=== PATIENT | female | born 1970 | race Caucasian/White ===

== ENCOUNTER 2020-05-31 15:08 | Emergency (ER) | payer BC, SELFPAY ==
[2020-05-31 15:09] VITALS: BP 145/78; PULSE 93; RESP 16; TEMP 36.6; O2SAT 97
--- NOTE | 2020-05-31 16:00 | ED.HA ---
HPI - Headache General Chief Complaint: Headache Stated Complaint: migraine Time Seen by Provider: 05/31/20 15:16 Source: patient Mode of arrival: ambulatory Limitations: no limitations History of Present Illness HPI Narrative: A 50-year-old female comes into the emergency department today with complaints of a migraine headache. Patient does endorse a history of migraine headaches and states that this 1 is a particularly bad one. She notes she has not been able to get the pain to go away and it seems to continue to escalate. She took her normal dose of rizatriptan with some, minimal relief. Patient states that she is very photophobic as well as phonophobic. She does endorse some mild nausea. Patient states that this particular headache started this morning. She states that she was recently taking amitriptyline as in the preventative medication however was recently tapered off of this due to memory issues. Related Data Allergies Allergy/AdvReac Type Severity Reaction Status Date / Time amoxicillin Allergy Mild Hives Verified 05/31/20 15:27 Penicillins Allergy Mild Rash Verified 05/31/20 15:27 clarithromycin Allergy Unknown Rash Verified 05/31/20 15:27 erythromycin base Allergy Unknown Hives Verified 05/31/20 15:27 sumatriptan Allergy Unknown Rash Verified 05/31/20 15:27 yellow dye Allergy Unknown Rash Verified 05/31/20 15:27 Review of Systems Review of Systems: Narrative: CONSTITUTIONAL: Denies fever, chills, or sweats. EYES: Denies visual changes, redness, or discharge. ENT: Denies rhinorrhea, congestion, sore throat, or otalgia. CARDIOVASCULAR: Denies chest pain, palpitations, or edema. RESPIRATORY: Denies cough or dyspnea. GASTROINTESTINAL: Denies abdominal pain, nausea, vomiting, or diarrhea. GENITOURINARY: Denies dysuria or hematuria. SKIN: Denies rash or itching. MUSCULOSKELETAL: Denies back pain, joint pain, or myalgia. NEUROLOGIC: Denies numbness, dizziness, or weakness. Endorses headache PSYCHIATRIC: Denies anxiety or depression. [facility] Past Medical History Medical History Hypothyroid Migraine without aura, not intractable, without status migrainosus Ovarian cyst (~1995) Surgical History Surgical History History of left knee surgery (~1985) History of nasal surgery 1979, 1980, 1994 History of shoulder surgery (~2009) right History of tonsillectomy (~1980) Family History Family History Father Family history of lung cancer Grandparent Family history of lung cancer Mother Family history of lupus erythematosus Sibling Asthma Father Family history of lung cancer, Onset Age: 56 Patient's father is Social History Social History Smoking status: Never smoker Alcohol intake: current Additional living arrangements comments: Exam Narrative: Exam Narrative: GENERAL: Well-appearing, well-nourished, and in no acute distress. Sitting quietly in a dark room, shielding her eyes from light HEAD: Normocephalic, atraumatic. EYES: PERRLA and EOMI. ENT: Nares clear, no rhinorrhea or epistaxis. Mucous membranes moist. NECK: Supple. No adenopathy or masses. No carotid bruits or JVD CHEST: Clear to auscultation. No respiratory distress. No wheezes rales or rhonchi HEART: Regular rate and rhythm. No murmur heard. Normal peripheral pulses. ABDOMEN: Soft, nontender, nondistended, normal active bowel sounds. EXTREMITIES: Normal range of motion. No edema. SKIN: Warm, dry, no rash. NEURO: No focal deficits. Alert and oriented x3. PSYCH: Normal mood and affect. Course Reevaluation(s) Reevaluation #1: Reevaluated patient after she received her medications. She states that her headache has markedly improved. She now rates it at a 3 out of 10. Patient will be discharged at
[2020-05-31] MEDS: KETOROLAC 30 MG/ML VIAL (*BKC) IV PUSH (16:19)
[2020-05-31] MEDS: PROCHLORPERAZINE EDISYLATE 10 MG/2 ML VIAL 5 MG IV PUSH (16:19)
[2020-05-31] MEDS: diphenhydrAMINE HCl INJ 50 MG/ML VIAL IV PUSH (16:19)
[2020-05-31 17:17] VITALS: BP 130/76; PULSE 90; RESP 18; O2SAT 98
== END 2020-05-31 17:18 | disposition home or self-care (01) ==
PROVIDERS: Emergency Provider Emergency Medicine; PCP Family Medicine
DX: G43.909 Migraine, unspecified, not intractable, without status migrainosus (principal); E03.9 Hypothyroidism, unspecified
CPT/HCPCS: 96374; 96375; 99284; J0780; J1200; J1885

== ENCOUNTER 2020-06-30 15:11 | Outpatient (CLI) | payer BC, SELFPAY ==
--- NOTE | ~2020-06-30 | US_ITS ---
US pelvic complete w TV DATE: 06/30/2020 16:00 INDICATION: Uterine hypertrophy TECHNIQUE: Real-time imaging via transabdominal and transvaginal approaches COMPARISON: 01/20/2018 CT abdomen pelvis FINDINGS: The uterus measures 8.3 cm height, 5.4 cm transverse dimension. There are multiple heteroge neous echogenic areas, the largest measuring 3.9 x 3.3 x 2.7 cm, most consistent with uterine fibroid s. The uterus central and medial complex measures approximately 8.3 mm AP dimension. Right ovary measures 2.0 x 1.3 x 1.3 cm. The left ovary measures 2.0 x 1.9 x 1.4 cm. There is vascula r flow to both ovaries. No pelvic mass or abnormal pelvic fluid collection is noted otherwise. IMPRESSION: Uterine fibroids Reviewed, dictated and finalized at [facility]. Reviewed, dictated and finalized at location [facility]. IMPRESSION: Uterine fibroids
== END 2020-06-30 15:12 | disposition home or self-care (01) ==
PROVIDERS: PCP Family Medicine; Visit Provider Obstetrics & Gynecology
DX: N85.2 Hypertrophy of uterus (principal); D25.9 Leiomyoma of uterus, unspecified
CPT/HCPCS: 76830; 76856

== ENCOUNTER 2020-08-20 15:49 | Outpatient (CLI) | payer BC, SELFPAY ==
--- NOTE | ~2020-08-20 | MM_ITS ---
EXAMINATION: MM screening sridhar BI w heriberto HISTORY: Screening TECHNIQUE: Craniocaudal and mediolateral oblique 3-D tomosynthesis images were obtained and synthetic 2-D images were generated. CAD analysis was submitted and interpreted. COMPARISON: 06/14/2017 BREAST PARENCHYMAL COMPOSITION: There are scattered areas of fibroglandular density. FINDINGS: There is no evidence of suspicious mass, calcification, or architectural distortion to sugg est malignancy in either breast. There has been no suspicious interval change. IMPRESSION: 1. No mammographic evidence of malignancy. 2. Recommend routine screening mammography in one year. BI-RADS Category 1: Negative Reviewed, dictated and finalized at location [facility].
== END 2020-08-20 15:50 | disposition home or self-care (01) ==
LOC: ANHIMG 15:53
PROVIDERS: PCP Family Medicine; Visit Provider Obstetrics & Gynecology
DX: Z12.31 Encounter for screening mammogram for malignant neoplasm of breast (principal)
CPT/HCPCS: 77063; 77067

== ENCOUNTER 2020-11-11 07:18 | Outpatient (CLI) | payer BC, SELFPAY ==
[2020-11-14 05:50] LABS: FSH 65.8 mIU/mL (***)
== END 2020-11-11 07:19 | disposition home or self-care (01) ==
PROVIDERS: PCP Family Medicine; Visit Provider Obstetrics & Gynecology
DX: N95.1 Menopausal and female climacteric states (principal)
CPT/HCPCS: 36415; 83001

== ENCOUNTER 2021-04-02 07:56 | Emergency (ER) | payer OTHER, BC, SELFPAY ==
--- NOTE | ~2021-04-02 | XR_ITS ---
EXAMINATION: XR ankle RT min 3V EXAM DATE: 04/02/2021 08:41 INDICATION: Lateral malleolus pain, fall, initial encounter. TECHNIQUE: Right ankle frontal, lateral and oblique projections obtained and reviewed. There is no p rior study for comparison. FINDINGS: The right ankle mortise appears intact. There are no acute fractures or dislocations iden tified. There is no subcutaneous gas. There is soft tissue swelling over the ankle laterally. Ther e are no radiopaque foreign bodies. There is old medial malleolar avulsion injury. Tibial bone islan d. IMPRESSION: 1. Right ankle exam without acute osseous findings. 2. Soft tissue swelling. Reviewed, dictated and finalized at location B. ECT DIRECTOR
[2021-04-02 08:20] VITALS: BP 140/85; PULSE 104; RESP 18; TEMP 36.8; O2SAT 98
[2021-04-02] MEDS: HYDROcodone/acetaminophen (*CRX) 5-325 MG TABLET 1 TAB PO (08:29)
--- NOTE | 2021-04-02 08:54 | ED.LOWEXIN ---
HPI - Extremity Injury (Lower) General Chief Complaint: Extremity Injury, Lower Stated Complaint: right ankle injury Time Seen by Provider: 04/02/21 08:03 History of Present Illness HPI Narrative: Patient is a 51-year-old female who presents ER with right ankle pain. She was stepping up on a curb at [employer] when she did not quite make it and she twisted her ankle. She felt a pop. She has pain with attempting to bear weight. Pain is under the lateral malleolus where there is also swelling. She did not strike her head or lose consciousness. No numbness or tingling in the foot. Related Data Home Medications Medication Instructions Recorded Confirmed erenumab-aooe 140 mg/mL mg SUBCUT 06/17/20 12/17/20 subcutaneous auto-injector zolpidem 5 mg tablet 5 mg PO QHS tablet 06/17/20 12/17/20 Allergies Allergy/AdvReac Type Severity Reaction Status Date / Time amoxicillin Allergy Mild Hives Verified 04/02/21 08:25 Penicillins Allergy Mild Rash Verified 04/02/21 08:25 clarithromycin Allergy Unknown Rash Verified 04/02/21 08:25 erythromycin base Allergy Unknown Hives Verified 04/02/21 08:25 sumatriptan Allergy Unknown Rash Verified 04/02/21 08:25 yellow dye Allergy Unknown Rash Verified 04/02/21 08:25 Review of Systems Review of Systems: All systems reviewed & are unremarkable except as noted in HPI and below ENT: Denies dizziness Musculoskeletal: Musculoskeletal: Denies myalgias, Reports arthralgias and Reports joint swelling Neurologic: Denies syncope, Denies focal weakness and Denies numbness PMFSH Past Medical History Medical History Hypothyroid Migraine without aura, not intractable, without status migrainosus Ovarian cyst (~1995) Sleep apnea Surgical History Surgical History History of left knee surgery (~1985) History of nasal surgery 1979, 1980, 1994 History of shoulder surgery (~2009) right History of tonsillectomy (~1980) Family History Family History Father Family history of lung cancer Grandparent Family history of lung cancer Mother Family history of lupus erythematosus Sibling Asthma Father Family history of lung cancer, Onset Age: 56 Patient's father is Social History Social History Smoking status: Never smoker Alcohol intake: current Additional living arrangements comments: Exam Narrative: GENERAL: Well-appearing, well-nourished, and in no acute distress. HEAD: Normocephalic, atraumatic. HEART: Regular rate and rhythm. Normal peripheral pulses. EXTREMITIES: Focused exam of right lower extremity reveals no tenderness at the knee with normal range of motion, there is range of motion preserved at the ankle with tenderness over the tip of the base of the lateral malleolus with observable swelling. Neurovascular intact distal to the injury. SKIN: Warm, dry, no rash. NEURO: No focal deficits. Alert and oriented x3. PSYCH: Normal mood and affect. Course Course Emergency Course: Patient form results. Will give crutch training. Discharge home with NSAIDs and care instructions. Vital Signs Vital signs: Vital Signs Temperature 98.2 F 04/02/21 08:20 Pulse Rate 104 H 04/02/21 08:20 Respiratory Rate 18 04/02/21 08:20 Blood Pressure 140/85 04/02/21 08:20 Pulse Oximetry 98 04/02/21 08:20 Temperature 98.2 F 04/02/21 08:20 Pulse Rate 104 H 04/02/21 08:20 Respiratory Rate 18 04/02/21 08:20 Blood Pressure 140/85 04/02/21 08:20 Pulse Oximetry 98 04/02/21 08:20 MDM - Extremity Injury (Lower) Imaging Data Radiologist's impression: ITS Impressions Ankle X-Ray 04/02/21 08:42 IMPRESSION: 1. Right ankle exam without acute osseous findings. 2. Soft tissue swelling. Di
== END 2021-04-02 09:27 | disposition home or self-care (01) ==
PROVIDERS: Emergency Provider Emergency Medicine; PCP Family Medicine
DX: S93.401A Sprain of unspecified ligament of right ankle, initial encounter (principal); E03.9 Hypothyroidism, unspecified; X50.0XXA Overexertion from strenuous movement or load, initial encounter; Y92.512 Supermarket, store or market as the place of occurrence of the external cause
CPT/HCPCS: 73610; 99283; A9270

== ENCOUNTER 2021-06-11 08:00 | Outpatient (RCR) | payer OTHER, SELFPAY ==
--- NOTE | 2021-05-15 09:59 | PTOPEVAL ---
PHYSICAL THERAPY EVALUATION AND PLAN OF CARE 05-15-21 Thank you for referring Piedad Marcial to [facility] for the diagnosis of R ankle sprain.? She is scheduled to be seen for therapy? 2 x/week for 4 weeks. Please review, sign, date and return this plan of care LARISSA. I agree with and certify that the following plan of care is medically necessary. Referring Physician Date Attending Provider: Bonnie Howard NP PT Outpatient Evaluation Document 05/15/21 09:05 TIANNA (Rec: 05/15/21 09:59 TIANNA [id number]) Outpatient Past Medical History Past Medical History Source of Past Medical History Patient Neurological History Hx Migraine Yes: on meds Cardiovascular History Hx Cardiac Disorders No Significant History Respiratory History Hx Respiratory Disorders No Significant History Gastrointestinal History Hx Cholecystectomy Yes Genitourinary History Hx Genitourinary Disorders No Significant History Musculoskeletal History Hx Other Musculoskeletal Disorders Yes: overal stiff from gymnastics as child Endocrine History Hx Hypothyroidism Yes: meds HEENT History Hx HEENT Disorders No Significant History Reproductive History Hx Other Reproductive Disorders Yes: ovarian cyst removed Evaluation Information Problem Diagnosis R ankle sprain Onset Mar 29, 2021 Subjective Information stepped out of car to go into Query Text:As Reported By Patient/ store, rainy and dark, hit Family curb wrong and fell, ankle twisted in; to ER- x rays negative; have history of sprained ankle in gymnastics as child; and did have stress fracture in R ankle; since injury--heat, ice, splint, ibuprofen; after 3 weeks, started doing some ankle exercises, continue to have pain; tried to increase walking and pain worse; have trip to [place] planned next week; Prior Level of Function Activity Level (Last 3 Months) 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
--- NOTE | 2021-06-11 08:58 | PTOPEVAL ---
PHYSICAL THERAPY DISCHARGE 06-11-21 Refer to the clinical summary below for her status today, compared to the initial evaluation. She will be discharged from PT at this time. And is to continue with her home exercises and increasing her activity level as tolerated. Thank you for referring Piedad Marcial to [facility].? Please review, sign, date and return this Discharge report LARISSA. I agree with and certify that the following plan of care is medically necessary. Referring Physician Date Attending Provider: Bonnie Howard NP Document 06/11/21 08:00 TIANNA (Rec: 06/11/21 08:48 TIANNA [id number]) Subjective Information Piedad reports: ankle is better Query Text:As Reported By Patient/ overall, still feels like Family ankle stops when pulling foot up; able to walk throughout [place] for 12 miles; been doing all exercises; Pain Assessment Pain Scale Pain Scale Used Numeric (1 - 10) Self Report Pain Assessment Right Ankle(s) Reported Pain Level 0 Pain Description Tightness Pain Frequency Chronic,Intermittent Other Pain Description anterior- medial ankle joint tight; burning at distal achilles, at attach Lowest Pain Intensity 0 Greatest Pain Intensity 2 Pain Aggravating Factors Stair Climbing,Walking Pain Score Pain Score 0: Self Report Additional Pain Score Comments did fall down the stairs at home with the dogs, set back a little Pain Relief Interventions Used By Heat,Ice,Inactivity/Rest Patient Other Alleviating Interventions no meds; Gross Lower Extremity Range of Motion R ankle with good ROM and no Comments pain with active motion, but little tight with DF over anterior medial ankle joint Gross Lower Extremity Strength functional strength testing: R ankle: standing: single leg standing with good balance 30+ sec - single leg small squat 17 reps without UE support/ with 1 UE support x 30 reps (L 25 reps, without UE support) - single leg PF 8 reps without UE support/ with 1 UE support x 20 reps (L 15 reps no UE) - small jump forward B LE x 5 reps, report increase pain anterior ankle-sore, tender
== END 2021-06-12 10:58 | disposition home or self-care (01) ==
LOC: ANHPT 08:00
PROVIDERS: PCP Family Medicine; Visit Provider Nurse Practitioner Family
DX: S93.401D Sprain of unspecified ligament of right ankle, subsequent encounter (principal)
CPT/HCPCS: 97022; 97035; 97110; 97112; 97140; 97161

== ENCOUNTER 2021-08-03 00:03 | Emergency (ER) | payer OTHER, SELFPAY ==
--- NOTE | ~2021-08-03 | CT_ITS ---
EXAMINATION: CT abdomen pelvis w con EXAM DATE: 08/03/2021 01:30 INDICATION: RLQ pain, n/v/d. TECHNIQUE: Spiral CT of the abdomen and pelvis was performed following intravenous injection of 100 m L Omnipaque 350. Axial, coronal and sagittal images of the abdomen and pelvis were reviewed. The do se-length product (DLP) for this examination was 1290.02 mGy-cm. The exposure was tailored according to patient size (auto mA exposure control), and iterative reconstruction (ASIR) was used as addition al dose reduction technique. Comparison is made to prior examination from 01/20/2018. FINDINGS: The liver, spleen, adrenal glands and pancreas are unremarkable. Gallbladder is unremarkab le. No biliary obstruction. Portal and splenic veins are patent. Kidneys enhance symmetrically. T here is no hydronephrosis. There are several right calyceal stones up to 4 mm, no ureteral stones. U terus is anteverted and there may be several small fibroids. The bladder is unremarkable. There is no retroperitoneal or pelvic lymphadenopathy. There are no findings to suggest appendicitis. The stomach and small bowel are unremarkable. There is colonic fluid, correlate for diarrhea. No free intraperitoneal gas. The heart is normal in siz e. There are no pericardial or pleural effusions. The lung bases are unremarkable. There are no os teoblastic or osteolytic lesions identified. IMPRESSION: 1. Colonic fluid, correlate for gastroenteritis/diarrhea. 2. Probable small fibroids. Reviewed, dictated and finalized at location A.
[2021-08-03 00:06] VITALS: BP 149/89; PULSE 125; RESP 19; TEMP 36.9; O2SAT 100
[2021-08-03 00:35] VITALS: PULSE 111; RESP 25; O2SAT 98
[2021-08-03] MEDS: SODIUM CHLORIDE 0.9% IV 1,000 ML 999 ML IV CONT (00:39)
--- NOTE | 2021-08-03 00:39 | ED.ABDPAIN ---
HPI - Abdominal Pain General Chief Complaint: Abdominal Pain Stated Complaint: abd pain, diarrhea, vomiting Time Seen by Provider: 08/03/21 00:12 Source: patient, family, RN notes reviewed and old records reviewed Mode of arrival: ambulatory Limitations: no limitations History of Present Illness HPI narrative: 51-year-old female with history of ovarian cysts, kidney stones presents to the emergency department for evaluation of nausea vomiting and diarrhea. Patient states she began having symptoms around noon which involved not feeling well. Patient states this evening she began having mid abdominal pain with associated nausea and vomiting. Patient states the pain initially improved after emesis but later returned. Patient denies any blood in her emesis. Patient reports watery diarrhea without blood. Patient denies any associated back pain or flank pain. Patient still has her gallbladder and appendix. Patient did have an ovarian cyst removed and has a history of lithotripsy. Related Data Home Medications Medication Instructions Recorded Confirmed ziprasidone HCl 20 mg capsule 20 mg PO BID 04/03/21 07/30/21 clonazepam 0.5 mg tablet 0.5 mg PO DAILY 07/30/21 07/30/21 rimegepant 75 mg disintegrating 75 mg PO .QOD PRN tablet 07/30/21 07/30/21 tablet Allergies Allergy/AdvReac Type Severity Reaction Status Date / Time amoxicillin Allergy Mild Hives Verified 08/03/21 00:24 Penicillins Allergy Mild Rash Verified 08/03/21 00:24 clarithromycin Allergy Unknown Rash Verified 08/03/21 00:24 erythromycin base Allergy Unknown Hives Verified 08/03/21 00:24 sumatriptan Allergy Unknown Rash Verified 08/03/21 00:24 yellow dye Allergy Unknown Rash Verified 08/03/21 00:24 Review of Systems Review of Systems: CONSTITUTIONAL: Subjective fever and chills EYES: Denies visual changes, redness, or discharge. ENT: Denies rhinorrhea, congestion, sore throat, or otalgia. CARDIOVASCULAR: Denies chest pain, palpitations, or edema. RESPIRATORY: Denies cough or dyspnea. GASTROINTESTINAL: See HPI GENITOURINARY: Denies dysuria or hematuria. SKIN: Denies rash or itching. MUSCULOSKELETAL: Denies back pain, joint pain, or myalgia. NEUROLOGIC: Denies headache, numbness, or weakness. All systems reviewed & are unremarkable except as noted in HPI and below PMFSH Past Medical History Medical History (Updated 08/03/21 @ 03:01 by Kostas Funes MD) Anxiety Hypothyroid Migraine without aura, not intractable, without status migrainosus Ovarian cyst (~1995) Sleep apnea Surgical History Surgical History History of left knee surgery (~1985) History of nasal surgery 1979, 1980, 1994 History of shoulder surgery (~2009) right History of tonsillectomy (~1980) Family History Family History Father Family history of lung cancer Grandparent Family history of lung cancer Mother Family history of lupus erythematosus Sibling Asthma Father Family history of lung cancer, Onset Age: 56 Patient's father is Social History Social History Smoking status: Never smoker Alcohol intake: current Additional living arrangements comments: Exam Narrative: APPEARANCE: Well appearing, no pain, no distress, well-nourished. HEAD: normocephalic, atraumatic. EYES: PERRLA/EOMI, conjunctivae clear. NOSE: Normal no drainage NECK: Supple. No adenopathy, no masses. RESPIRATORY: Airway patent, respirations nonlabored. Clear to auscultation bilaterally, no rales, rhonchi, wheezing. CARDIOVASCULAR: Regular rate and rhythm without murmurs rubs or gallops. ABDOMINAL: Soft, normal bowel sounds, diffusely tender MUSCULOSKELETAL: Moves all extremities. Strength/ROM intact, No edema, No calf tenderness. NEURO: Alert. Cranial nerves II through XII intact. Grossly intact SKIN: Warm
[2021-08-03 00:46] LABS: Basophils Absolute Auto 0.1 K/mm3 (0.0-0.1); Basophils Percent Auto 0.3 % (0.2-1.2); Eosinophils Absolute Auto 0.1 K/mm3 (0-0.3); Eosinophils Percent Auto 0.4 % (0-4.4); Hematocrit 45.2 % (37.0-47.0); Hemoglobin 13.9 g/dL (12.0-15.0); Immature Granulocyte Absolute 0.08 K/mm3 (0.00-0.031); Immature Granulocyte Percent A 0.4 % (0-0.5); Lymphocytes Absolute Auto 1.21 K/mm3 (0.9-3.2); Lymphocytes Percent Auto 6.1 % (18.3-44.2); Mean Corpuscular HGB Conc 30.8 g/dl (32-36); Mean Corpuscular Volume 81.1 fl (80-100); Monocytes Absolute Auto 0.9 K/mm3 (0.1-0.6); Monocytes Percent Auto 4.3 % (2.6-8.5); Neutrophils Absolute Auto 17.5 K/mm3 (1.3-6.7); Neutrophils Percent Auto 88.5 % (45.5-73.1); Platelet Count Result 339 k/mm3 (150-375); Red Blood Count 5.57 M/mm3 (4.2-5.4); Red Cell Distribution Width 14.9 % (11.5-14.5); White Blood Count 19.8 K/mm3 (4.5-10.0)
[2021-08-03] MEDS: ONDANSETRON INJ 4 MG/2 ML VIAL IV PUSH (00:46)
[2021-08-03 00:57] LABS: Alanine Aminotransferase 29 U/L (4-35); Alkaline Phosphatase 122 U/L (38-126); Anion Gap 11 mmol/L (8-16); Aspartate Amino Transferase 35 U/L (14-36); Bilirubin,Total 0.5 mg/dL (0.2-1.3); Blood Urea Nitrogen 15 mg/dL (7-17); Calcium 9.4 mg/dL (8.4-10.2); Carbon Dioxide 22 mmol/L (22-30); Chloride 104 mmol/L (98-107); Estimated CRCL calculation 90 ml/min; Estimated Glomerular Filt Rate > 60; Glucose 128 mg/dL (65-110); Lactic Acid Reflex 2.1 mmol/L (0.7-2.1); Lipase 110 U/L (23-300); Potassium 4.1 mmol/L (3.4-5.0); Sodium 137 mmol/L (137-145)
--- NOTE | 2021-08-03 01:20 | PC.NURSE ---
Assumed care of patient at this time. Patient in CT.
[2021-08-03] MEDS: HYDROmorphone HCL INJ (*CRX) 1 MG/ML SYR 0.5 MG IV PUSH (01:49)
[2021-08-03 01:58] LABS: Appearance Urine Clear (Clear); Bilirubin Urine Negative (Negative); Color Urine Yellow (Yellow); Glucose Urine UA Negative (Negative); Ketones Urine Negative (Negative); Leukocyte Esterase Ur Negative LEU/UL (Negative); Nitrate Urine Negative (Negative); Protein Urine Negative (Negative); Specific Grav Ur <= 1.005 (1.001-1.035); Urobilinogen Urine 0.2 mg/dL (<2.0); pH Urine 5.5 (5.0-9.0)
[2021-08-03 02:02] LABS: Mucus Urine Rare /lpf; Squamous Epithelial Cell Urine Rare /hpf (Few); WBC Urine 0-3 /hpf
[2021-08-03 02:05] LABS: Add Urine Microscopic? YES; Blood Urine Trace (Negative)
[2021-08-03 02:32] LABS: Influenza A QL RT-PCR Negative (Negative); Influenza B QL RT-PCR Negative (Negative); SARS-CoV-2 RNA PCR Negative
[2021-08-03 03:10] VITALS: BP 117/69; PULSE 88; RESP 23; O2SAT 98
[2021-08-03 03:44] LABS: Reflex Lactic Acid Yes or No Add Lactic
== END 2021-08-03 03:13 | disposition home or self-care (01) ==
PROVIDERS: Emergency Provider Emergency Medicine; PCP Family Medicine
DX: R19.7 Diarrhea, unspecified (principal); Z20.822 Contact with and (suspected) exposure to COVID-19; E03.9 Hypothyroidism, unspecified; G47.30 Sleep apnea, unspecified; F41.9 Anxiety disorder, unspecified; Z87.442 Personal history of urinary calculi
CPT/HCPCS: 36415; 74177; 80053; 81001; 83605; 83690; 85025; 87502; 96361; 96374; 96375; 99284; C9803; J1170; J2405; J7030; Q9967; U0003; U0005

== ENCOUNTER 2021-09-09 10:59 | Outpatient (CLI) | payer OTHER, SELFPAY ==
[2021-09-09 11:22] LABS: Hematocrit 40.1 % (37.0-47.0); Hemoglobin 12.6 g/dL (12.0-15.0); Mean Corpuscular HGB Conc 31.4 g/dl (32-36); Mean Corpuscular Hemoglobin 25.3 pg (26-34); Mean Corpuscular Volume 80.5 fl (80-100); Mean Platelet Volume 9.9 fl (7.4-10.4); Platelet Count Result 316 k/mm3 (150-375); Red Blood Count 4.98 M/mm3 (4.2-5.4); Red Cell Distribution Width 15.5 % (11.5-14.5); White Blood Count 10.5 K/mm3 (4.5-10.0)
[2021-09-09 11:39] LABS: Alanine Aminotransferase 22 U/L (6-35); Albumin Level 4.7 g/dL (3.5-5.1); Alkaline Phosphatase 93 U/L (38-126); Anion Gap 10 mmol/L (8-16); Aspartate Amino Transferase 24 U/L (14-36); Bilirubin,Total 0.4 mg/dL (0.2-1.3); Blood Urea Nitrogen 12 mg/dL (7-17); Calcium 9.2 mg/dL (8.4-10.2); Carbon Dioxide 21 mmol/L (22-30); Chloride 105 mmol/L (98-107); Estimated Glomerular Filt Rate > 60; Glucose 131 mg/dL (65-110); Potassium 4.1 mmol/L (3.4-5.0); Sodium 136 mmol/L (137-145)
[2021-09-11 19:27] LABS: Hemoglobin A1C 5.7 % (<5.7)
== END 2021-09-09 11:00 | disposition home or self-care (01) ==
LOC: ANHLAB 11:01
PROVIDERS: PCP Family Medicine; Visit Provider Nurse Practitioner Family
DX: E03.9 Hypothyroidism, unspecified (principal); Z51.81 Encounter for therapeutic drug level monitoring; Z79.899 Other long term (current) drug therapy
CPT/HCPCS: 36415; 80053; 83036; 84443; 85027

== ENCOUNTER 2021-09-21 09:07 | Emergency (ER) | payer OTHER, SELFPAY ==
[2021-09-21] VITALS (11 sets, daily range): BP systolic 111–128; BP diastolic 60–75; PULSE 97; RESP 16; TEMP 37.2; O2SAT 96–100
--- NOTE | ~2021-09-21 | CT_ITS ---
EXAMINATION: CT abdomen pelvis wo con DATE: 09/21/2021 09:56 INDICATION: Left lower quadrant abdominal pain TECHNIQUE: Computed tomography (CT) of the abdomen and pelvis was performed without intravenous contr ast. Automated exposure control and iterative reconstruction technique were employed. Exam dose: 125 1.21 mGy-cm total exam DLP. COMPARISON: 08/03/2021 CT abdomen pelvis FINDINGS: The lung bases are clear. Normal heart size. No pericardial or pleural effusion. The liver, gallbladder, bile ducts, spleen, pancreas, pancreatic duct and adrenal glands appear federico l. There are at least 5 nonobstructing right renal calculi, measuring up to approximately 3 mm--4 4 mm m aximal dimension. There are at least is minimally nonobstructing but smaller left renal calculi. No ureteral calculus o r hydroureteronephrosis. The urinary bladder is relatively evacuated, otherwise unremarkable. There i s evidence of fibroid change of the uterus. There is thickening of the pararenal and lateroconal fascia in the left lower quadrant and prominent pericolic fat stranding along the distal descending colon, likely due to diverticulitis. A small dive rticulum was present in this location of the colon on 08/03/2021. No free air or abscess cavity is farshad ntified. Normal appendix. No bowel obstruction is detected. Normal caliber of the abdominal aorta. No intraperitoneal or retroperitoneal or pelvic mass lesion or adenopathy or ascites. Small fat-containing umbilical hernia. Included skeletal structures are unremarkable other than some degenerative changes of the lumbar spin e. IMPRESSION: Diverticulitis of distal descending colon, left lower quadrant Reviewed, dictated and finalized at [facility]. Reviewed, dictated and finalized at location [facility].
[2021-09-21 09:34] LABS: Basophils Percent Auto 0.3 % (0.2-1.2); Eosinophils Absolute Auto 0.1 K/mm3 (0-0.3); Eosinophils Percent Auto 1.2 % (0-4.4); Hematocrit 37.5 % (37.0-47.0); Immature Granulocyte Absolute 0.04 K/mm3 (0.00-0.031); Immature Granulocyte Percent A 0.3 % (0-0.5); Immature Platelet Fraction Pct 4.6 % (0.9-11.2); Lymphocytes Absolute Auto 1.97 K/mm3 (0.9-3.2); Lymphocytes Percent Auto 16.9 % (18.3-44.2); Mean Corpuscular Hemoglobin 26.1 pg (26-34); Mean Corpuscular Volume 81.7 fl (80-100); Monocytes Absolute Auto 0.7 K/mm3 (0.1-0.6); Monocytes Percent Auto 5.7 % (2.6-8.5); Neutrophils Absolute Auto 8.8 K/mm3 (1.3-6.7); Neutrophils Percent Auto 75.6 % (45.5-73.1); Platelet Count Result 264 k/mm3 (150-375); Red Blood Count 4.59 M/mm3 (4.2-5.4); Red Cell Distribution Width 15.6 % (11.5-14.5); White Blood Count 11.7 K/mm3 (4.5-10.0)
[2021-09-21 09:49] LABS: Alanine Aminotransferase 42 U/L (6-35); Albumin Level 4.6 g/dL (3.5-5.1); Alkaline Phosphatase 121 U/L (38-126); Anion Gap 8 mmol/L (8-16); Aspartate Amino Transferase 42 U/L (14-36); Bilirubin,Total 0.6 mg/dL (0.2-1.3); Blood Urea Nitrogen 10 mg/dL (7-17); Calcium 8.9 mg/dL (8.4-10.2); Carbon Dioxide 26 mmol/L (22-30); Chloride 105 mmol/L (98-107); Estimated CRCL calculation 90 ml/min; Estimated Glomerular Filt Rate > 60; Glucose 123 mg/dL (65-110); Lipase 48 U/L (23-300); Potassium 4.9 mmol/L (3.4-5.0); Sodium 139 mmol/L (137-145)
[2021-09-21 10:00] LABS: Appearance Urine Slightly Cloudy (Clear); Bilirubin Urine 1+ (Negative); Blood Urine 2+ (Negative); Color Urine Yellow (Yellow); Glucose Urine UA Negative (Negative); Ketones Urine Trace mg/dL (Negative); Leukocyte Esterase Ur Negative LEU/UL (Negative); Nitrate Urine Negative (Negative); Protein Urine 2+ mg/dL (Negative); Specific Grav Ur 1.015 (1.001-1.035); Urobilinogen Urine 0.2 mg/dL (<2.0); pH Urine 6.5 (5.0-9.0)
[2021-09-21 10:15] LABS: Bacteria Urine Trace /hpf; Mucus Urine Rare /lpf; RBC Urine 21-50 /hpf (0-2); Squamous Epithelial Cell Urine Rare /hpf (Few)
[2021-09-21 10:16] LABS: Add Urine Microscopic? YES
--- NOTE | 2021-09-21 10:23 | ED.ABDPAIN ---
HPI - Abdominal Pain General Chief Complaint: Abdominal Pain Stated Complaint: LLQ pain since tuesday Time Seen by Provider: 09/21/21 09:17 History of Present Illness HPI narrative: 51-year-old female presented to the emergency department for evaluation of left lower quadrant pain and discomfort that started on Tuesday. Patient states since Tuesday the pain has become more diffuse. Patient denies any associated nausea vomiting or diarrhea. Patient denies any pain with urination. Patient does have a prior history of kidney stones but denies any flank pain with this. Patient suspects that this may be a urinary tract infection since she did use a body wash and often has urinary tract infections after using body wash. Related Data Home Medications Medication Instructions Recorded Confirmed ziprasidone HCl 20 mg capsule 20 mg PO BID 04/03/21 09/15/21 clonazepam 0.5 mg tablet 0.5 mg PO DAILY 07/30/21 09/15/21 rimegepant 75 mg disintegrating 75 mg PO .QOD PRN 07/30/21 09/15/21 tablet (Nurtec ODT) Allergies Allergy/AdvReac Type Severity Reaction Status Date / Time amoxicillin Allergy Mild Hives Verified 09/10/21 12:56 Penicillins Allergy Mild Rash Verified 09/10/21 12:56 clarithromycin Allergy Unknown Rash Verified 09/10/21 12:56 erythromycin base Allergy Unknown Hives Verified 09/10/21 12:56 sumatriptan Allergy Unknown Rash Verified 09/10/21 12:56 yellow dye Allergy Unknown Rash Verified 09/10/21 12:56 Review of Systems Review of Systems: CONSTITUTIONAL: Denies fever, chills, or sweats. EYES: Denies visual changes, redness, or discharge. ENT: Denies rhinorrhea, congestion, sore throat, or otalgia. CARDIOVASCULAR: Denies chest pain, palpitations, or edema. RESPIRATORY: Denies cough or dyspnea. GASTROINTESTINAL: See HPI GENITOURINARY: Denies dysuria or hematuria. SKIN: Denies rash or itching. MUSCULOSKELETAL: Denies back pain, joint pain, or myalgia. NEUROLOGIC: Denies headache, numbness, or weakness. [facility] Past Medical History Medical History Anxiety Hypothyroid Migraine without aura, not intractable, without status migrainosus Ovarian cyst (~1995) Sleep apnea Surgical History Surgical History History of left knee surgery (~1985) History of nasal surgery 1979, 1980, 1994 History of shoulder surgery (~2009) right History of tonsillectomy (~1980) Family History Family History Father Family history of lung cancer Grandparent Family history of lung cancer Mother Family history of lupus erythematosus Sibling Asthma Father Family history of lung cancer, Onset Age: 56 Patient's father is Social History Social History Smoking status: Never smoker Alcohol intake: current Additional living arrangements comments: Exam Narrative: APPEARANCE: Well appearing, no pain, no distress, well-nourished. HEAD: normocephalic, atraumatic. EYES: PERRLA/EOMI, conjunctivae clear. NECK: Supple. No adenopathy, no masses. RESPIRATORY: Airway patent, respirations nonlabored. Clear to auscultation bilaterally, no rales, rhonchi, wheezing. CARDIOVASCULAR: Regular rate and rhythm without murmurs rubs or gallops. ABDOMINAL: Soft normal bowel sounds, some tenderness on left lower quadrant and suprapubic tenderness to palpation. Patient has minimal tenderness across the entire abdomen. No evidence of peritonitis. MUSCULOSKELETAL: Moves all extremities. Strength/ROM intact, NEURO: Alert. Cranial nerves II through XII intact. Grossly intact SKIN: Warm, dry. Normal Color Course Course Emergency Course: CT scan showed evidence of diverticulitis without evidence of abscess or perforation. Patient was started on Cipro and Flagyl due to underlying allergies. Patient was educ
[2021-09-21] MEDS: metroNIDAZOLE 250 MG TABLET 500 MG PO (10:48)
[2021-09-21] MEDS: CIPROFLOXACIN 500 MG TAB PO (10:49)
--- NOTE | 2021-09-21 10:54 | PC.NURSE ---
930- Attempted IV x1, labs obtained with attempt. Pt declines 2nd IV attempt
== END 2021-09-21 11:00 | disposition home or self-care (01) ==
PROVIDERS: Emergency Provider Emergency Medicine; PCP Nurse Practitioner Family
DX: K57.92 Diverticulitis of intestine, part unspecified, without perforation or abscess without bleeding (principal); F41.9 Anxiety disorder, unspecified; E03.9 Hypothyroidism, unspecified
CPT/HCPCS: 36415; 74176; 80053; 81001; 81025; 83690; 85025; 85055; 99284; A9270

== ENCOUNTER 2021-10-12 08:54 | Outpatient (CLI) | payer OTHER, SELFPAY ==
[2021-10-12 09:26] LABS: Hematocrit 40.4 % (37.0-47.0); Hemoglobin 12.7 g/dL (12.0-15.0); Mean Corpuscular HGB Conc 31.4 g/dl (32-36); Mean Corpuscular Hemoglobin 26.2 pg (26-34); Mean Corpuscular Volume 83.3 fl (80-100); Mean Platelet Volume 11.3 fl (7.4-10.4); Platelet Count Result 319 k/mm3 (150-375); Red Blood Count 4.85 M/mm3 (4.2-5.4); Red Cell Distribution Width 15.7 % (11.5-14.5); White Blood Count 11.6 K/mm3 (4.5-10.0)
[2021-10-12 09:43] LABS: Aspartate Amino Transferase 45 U/L (14-36)
== END 2021-10-12 08:55 | disposition home or self-care (01) ==
LOC: ANHLAB 09:02
PROVIDERS: PCP Family Medicine
DX: Z79.899 Other long term (current) drug therapy (principal)
CPT/HCPCS: 36415; 80164; 84450; 85027

== ENCOUNTER 2021-11-16 08:43 | Outpatient (CLI) | payer OTHER, SELFPAY ==
[2021-11-16 09:10] LABS: Basophils Absolute Auto 0.1 K/mm3 (0.0-0.1); Basophils Percent Auto 0.4 % (0.2-1.2); Eosinophils Absolute Auto 0.1 K/mm3 (0-0.3); Eosinophils Percent Auto 0.7 % (0-4.4); Hematocrit 42.9 % (37.0-47.0); Hemoglobin 13.1 g/dL (12.0-15.0); Immature Granulocyte Absolute 0.05 K/mm3 (0.00-0.031); Immature Granulocyte Percent A 0.3 % (0-0.5); Lymphocytes Absolute Auto 1.81 K/mm3 (0.9-3.2); Mean Corpuscular HGB Conc 30.5 g/dl (32-36); Mean Corpuscular Hemoglobin 25.8 pg (26-34); Mean Corpuscular Volume 84.6 fl (80-100); Mean Platelet Volume 11.1 fl (7.4-10.4); Monocytes Absolute Auto 0.8 K/mm3 (0.1-0.6); Monocytes Percent Auto 5.4 % (2.6-8.5); Neutrophils Absolute Auto 12.3 K/mm3 (1.3-6.7); Neutrophils Percent Auto 81.2 % (45.5-73.1); Platelet Count Result 246 k/mm3 (150-375); Red Blood Count 5.07 M/mm3 (4.2-5.4); Red Cell Distribution Width 14.5 % (11.5-14.5); White Blood Count 15.1 K/mm3 (4.5-10.0)
[2021-11-16 09:23] LABS: Alanine Aminotransferase 17 U/L (6-35); Aspartate Amino Transferase 23 U/L (14-36)
[2021-11-16 09:31] LABS: Ammonia < 9 umol/L (9-30)
[2021-11-16 09:56] LABS: Valproic Acid 82.2 ug/mL (50-120)
== END 2021-11-16 08:44 | disposition home or self-care (01) ==
PROVIDERS: PCP Family Medicine
DX: Z79.899 Other long term (current) drug therapy (principal)
CPT/HCPCS: 36415; 80164; 82140; 84450; 84460; 85025

== ENCOUNTER 2021-11-17 10:00 | Outpatient (NON) | payer OTHER, SELFPAY | END 2021-11-17 10:01 | disposition home or self-care (01) | LOC: ANHLAB 11-19 10:44 | PROVIDERS: PCP Family Medicine; Visit Provider Nurse Practitioner Family | DX: R30.0 Dysuria (principal) | CPT/HCPCS: 87186 ==

== ENCOUNTER 2024-03-09 14:42 | Outpatient (CLI) | payer OTHER, SELFPAY ==
--- NOTE | ~2024-03-09 | MM_ITS ---
EXAMINATION: MM screening sridhar BI w heriberto HISTORY: Screening mammogram TECHNIQUE: Craniocaudal and mediolateral oblique 3-D tomosynthesis images were obtained and synthetic 2-D images were generated. CAD analysis was submitted and interpreted. COMPARISON: 6 08/20/2020, 06/14/2017 bilateral screening mammogram examinations BREAST PARENCHYMAL COMPOSITION: There are scattered areas of fibroglandular density. FINDINGS: There is no evidence of suspicious mass, calcification, or architectural distortion to sugg est malignancy in either breast. There has been no suspicious interval change. IMPRESSION: 1. No mammographic evidence of malignancy. 2. Recommend routine screening mammography in one year. BI-RADS Category 1: Negative Reviewed, dictated and finalized at location A. 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
== END 2024-03-09 14:43 | disposition home or self-care (01) ==
LOC: ANHIMG 14:43
PROVIDERS: PCP Family Medicine; Visit Provider Obstetrics & Gynecology
DX: Z12.31 Encounter for screening mammogram for malignant neoplasm of breast (principal)
CPT/HCPCS: 77063; 77067

== ENCOUNTER 2025-04-10 10:26 | Outpatient (CLI) | payer BC, SELFPAY ==
--- OUTSIDE RECORDS SUMMARY | 2025-04-10 10:30 | XMS_ITS | Clinical Summary ---
Author Organization [facility] [address] [place] [id number] Care Team Providers Care Weight Guesser Name Role Phone Bonnie Howard NP Primary Care Provider [phone] Allergies Active Allergy Reactions Criticality Noted Date Comments Azithromycin Rash Reaction: rash, Penicillins Rash Reaction: Rash, Yellow Dye Rash Reaction: rash, Medications levothyroxine (SYNTHROID) 50 mcg tablet Take 50 mcg by mouth medical billing coder before breakfast Active tranexamic acid (LYSTEDA) 650 mg tablet 1,300 mg 3 (three) times a day Active buPROPion XL (WELLBUTRIN XL) 150 mg 24 hr tablet 1 Active ziprasidone (GEODON) 20 mg capsule 1 Active zolpidem (AMBIEN) 5 mg tabletIndicatio ns:Sleep-Onset Insomnia Take 1 tablet (5 mg total) by mouth nightly as needed for sleep 30 tablet 5 2 Active ALPRAZolam (XANAX) 0.25 mg tablet [address] (DEPAKOTE) 125 mg EC tablet Take 125 mg by mouth 3 (three) times a day Active rizatriptan (MAXALT) 10 mg tabletIndicatio ns:Migraine Take 1 tablet (10 mg total) by mouth once as needed for migraine May repeat in 2 hours if unresolved. Do not exceed 30 mg in 24 hours. 9 tablet 5 2 Active rimegepant (Nurtec ODT) tablet,disinteg ratingIndicatio ns:Migraine Prevention Take 1 tablet (75 mg total) by mouth every other day 16 tablet 5 2 Active Active Problems Problem Noted Date Diagnosed Date Psychophysiological insomnia 06/10/2020 JACQUE (obstructive sleep apnea) 04/29/2020 Morbid obesity with BMI of 40.0-44.9, adult 04/18 Migraine 08/08/2012 Overview (07/23/2016): Migraines Transient alteration of awareness Immunizations Immunization Administration Dates Next Due Flucelvax Influenza Quad 02/16/2020,01/24/2019,0 05/04/2017 Influenza, Quadrivalent, Kaylee l Culture-based MDCK, Preservative Free, Antibiotic Free, Intramuscular 02/14/2020 Surgical History Surgery Date Site/Laterality Comments OTHER SURGICAL HISTORY 1995 Ovarian cyst/mass: ovary: L/S cystectomy TONSILLECTOMY 1979 tonsillectomy ADENOIDECTOMY 1979 adenoidectomy SHOULDER SURGERY 2011 Right shoulder surgery Medical History Medical History Date Comments Hx Other Medical Ovarian cyst/ma ss Hx Other Medical Cracked septum/ torn cartilage; Laterality: nose Hx Other Medical 1986 knee cap off tr ack; Laterality: left Hx Other Medical 1978 cyst on nose Anxiety Headache Thyroid disease Family History Medical History Relation Name Comments Asthma Brother 1 Asthma; Migraines Brother 2 Migraines; Lung cancer Father Cancer, lung; Breast cancer Father's Sister 1 Cancer, b reast; Other Father's Sister 2 brain CA; Rheumatic fever Maternal Grandmother Rheu matic fever; Migraines Mother Migraines; Other Paternal Grandmother Bleedin g disorder; Thyroid disease Paternal Grandmother Thyr oid disease; Relation Name Status Comments Brother 1 Brother 2 Father Father's Sister 1 Father's Sister 2 Maternal Grandmother Mother Paternal Grandmother Social History Tobacco Use Types Packs/Day Years Used Date Smoking Tobacco: Never Smokeless Tobacco: Never Tobacco Cessation:Counseling Given: Not Answered Alcohol Use Standard Drinks/Week Comments Yes 0 (1 standard drink = 0.6 oz pur e alcohol) Comments No Sex and Gender Information Value Date Recorded Sex Assigned at Not on file Legal Sex Female 2:49 AM 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 AND 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 Gender Identity Not on file Sexual Orientation Not on file Last Filed Vital Signs Vital Sign Reading Time Taken Comments Blood Pressure 110/70 02/02/2022 8:59 AM CDT Pulse 71 02/02/2022 8:59 AM CDT Temperature - - Respiratory Rate 18 02/02/2022 8:59 AM CDT Oxygen Saturation 97% 02/02/2022 8: 59 AM CDT Inhaled Oxygen Concentration - - Weight 108.2 kg (238 lb 6.8 oz) 02/02/2022 8:59 AM CDT Height 170.2 cm (5' 7) 02/02/2022 8:59 AM CDT Body Mass Index 37.34 02/02/2022 8:59 AM CDT Plan of Treatment Not on file Insurance [place] [id number] [facility] ACCESS Care Teams Weight Guesser Relationship Specialty Start Date End Date Bonnie Howard NP PCP - General Family Medicine 01/11/20
--- OUTSIDE RECORDS SUMMARY | 2025-04-10 10:30 | XMS_ITS | Encounter Summary ---
Author Organization [facility] Health Address [address] [place] [address] Care Team Providers Care Vest Busheler Name Role Phone Unavailable Primary Care Provider Unavailabl e Prior Encounters Date Type Department Care Team Description 05/07/2019 Converted CPS Chart Documents [facility] [address] [place] [address] <No scans attached> 05/07/2019 Converted 13x Documents [facility] [address] [place] [address] <No scans attached> Plan of Treatment Not on file Procedures Procedure Name Priority Date/Time Associated Diagnosis Comments CANCELLED APPOINTMENT Routine 07/30/2016 2:00 AM CDT 5 LIMITED ORAL EVALUATION - PROBLEM FOCUSED Routine 04/22/2016 2:00 AM ADJUNCT FACULTY INSTRUCTOR 4 LIMITED ORAL EVALUATION - PROBLEM FOCUSED Routine 04/22/2016 2:00 AM ADJUNCT FACULTY INSTRUCTOR 3 LIMITED ORAL EVALUATION - PROBLEM FOCUSED Routine 04/22/2016 2:00 AM ADJUNCT FACULTY INSTRUCTOR SINGLE X-RAY Routine 04/22/2016 2:00 AM ADJUNCT FACULTY INSTRUCTOR INHALATION ADMINISTRATION OF NITROUS OXIDE/ANALGESIA, ANXIOLYSIS Routine 02/05/2016 2:00 AM CDT 14 B COMPOSITE FILLING Routine 6 2:00 AM CDT 12 B COMPOSITE FILLING Routine 6 2:00 AM CDT 5 B COMPOSITE FILLING Routine 02/05/2016 2:00 AM CDT 4 B COMPOSITE FILLING Routine 02/05/2016 2:00 AM CDT 3 B COMPOSITE FILLING Routine 02/05/2016 2:00 AM CDT 11 F COMPOSITE FILLING Routine 6 2:00 AM CDT PERIODIC ORAL EVALUATION - ESTABLISHED PATIENT Routine 01/28/2016 2:00 AM CDT ORAL HYGIENE INSTRUCTIONS Routine 2015 2:00 AM CDT TOPICAL APPLICATION OF FLUORIDE VARNISH Routine 01/28/2016 2:00 AM CDT PROPHYLAXIS - ADULT Routine 01/28/2016 2 :00 AM CDT 14 DO AMALGAM 2 SURFACE Routine 07/22/19 16 2:00 AM CDT 2 O AMALGAM 1 SURFACE Routine 07/22/2015 2:00 AM CDT 30 CEREC ONLAY 3 SURF Routine 2015 2:00 AM CDT 19 CEREC ONLAY 3 SURF Routine 2015 2:00 AM CDT COMPREHENSIVE ORAL EVALUATION - NEW OR ESTABLISHED PATIENT Routine 07/22/2015 2:00 AM CDT ORAL HYGIENE INSTRUCTIONS Routine 2015 2:00 AM CDT TOPICAL APPLICATION OF FLUORIDE VARNISH Routine 07/22/2015 2:00 AM CDT PROPHYLAXIS - ADULT Routine 07/22/2015 2 :00 AM CDT PANORAMIC RADIOGRAPHIC IMAGE Routine 07/22/2015 2:00 AM CDT INTRAORAL - COMPREHENSIVE SERIES OF RADIOGRAPHIC IMAGES Routine 07/22/2015 2:00 AM CDT INTRAORAL PHOTO Routine 07/22/2015 2:00 AM CDT INTRAORAL PHOTO Routine 07/22/2015 2:00 AM CDT INTRAORAL PHOTO Routine 07/22/2015 2:00 AM CDT INTRAORAL PHOTO Routine 07/22/2015 2:00 AM CDT 18 O COMPOSITE FILLING Routine 6 2:00 AM CDT Visit Diagnoses Not on file
--- OUTSIDE RECORDS SUMMARY | 2025-04-10 10:30 | XMS_ITS | Clinical Summary ---
Author Organization [facility] Health Address [address] [place] [address] Care Team Providers Care Heater Helper Name Role Phone Unavailable Primary Care Provider Unavailabl e Social History Tobacco Use Types Packs/Day Years Used Date Smoking Tobacco: Never Assessed Comments Unknown Sex and Gender Information Value Date Recorded Sex Assigned at Not on file Legal Sex Female 10:39 PM PST Gender Identity Not on file Sexual Orientation Not on file Plan of Treatment Not on file
--- OUTSIDE RECORDS SUMMARY | 2025-04-10 10:30 | XMS_ITS | Clinical Summary ---
Author Organization [facility] Address [address] [place] [id number] Care Team Providers Care Director Radio Name Role Phone Socorro Smalls DO Primary Care Provider + Allergies Active Allergy Reactions Criticality Noted Date Comments Azithromycin Rash Medium 02/03/2023 Reaction: rash, Reaction: rash, Reaction: rash, Reaction: rash, Penicillins Rash Medium 05/27/2022 Reaction: Rash, Reaction: Rash, Reaction: Rash, Topiramate Other - Describe In Comment Field Low 05/27/2022 Memory loss- intermediate card tender memory, teeth almost fell out, bloody gums, extremely emotional. Memory loss- penitentiary memory, teeth almost fell out, bloody gums, extremely emotional. Yellow Dye Rash Medium 02/03/2023 Reaction: rash, Reaction: rash, Medications pediatric multivitamin no.49 (Flintstones Gummies) chew Chew by mouth. A ctive cholecalciferol, Vitamin D3, (Vitamin D-3) 5,000 unit tab tablet Take by mouth once daily. Active benzonatate (TESSALON) 200 mg capsuleIndication s:Cough, unspecified type Take 1 Capsule (200 mg) by mouth 3 times daily if needed for Cough. 21 Capsule 4 Active levalbuterol (XOPENEX HFA) 45 mcg/actuation inhalerIndication s:Chest tightness Inhale 1-2 Puffs by mouth every 4 hours if needed for Shortness Of Breath. 15 g 4 Active codeine-guaiFENes in 10-100 mg/5 mL liquidIndications :Cough, unspecified type Take 5 mL by mouth every 6 hours if needed for Cough. Max dose 60 mL per 24 hrs. 120 mL Active Active Problems No known active problems Social History Tobacco Use Types Packs/Day Years Used Date Smoking Tobacco: Never Assessed Social Connections Answer Date Recorded Do you often feel lonely or isolated from those around you? 0 02/11/2024 Financial Resource Strain Answer Date R ecorded Difficulty of Paying Living Expenses 3 05/19/2024 Difficulty of Paying Living Expenses Not on file 05/19/2024 Food Insecurity Answer Date Recorded Do you worry your food will run out before you are able to buy more? 1 02/11/2024 Transportation Needs Answer Date Record ed Does lack of transportation keep you from medica l appointments? 1 02/11/2024 Does lack of transportation keep you from work, meetings or getting things that you need? 1 02/11/2024 Housing Stability Answer Date Recorded What is your housing situation today? 1 02/11/2024 Utilities Answer Date Recorded Do you have trouble paying f or utilities (for example, heat, electricity, water, phone)? 1 02/11/2024 Comments No Sex and Gender Information Value Date Recorded Sex Assigned at Not on file Legal Sex Female 9:41 AM CDT Gender Identity Not on file Sexual Orientation Not on file Last Filed Vital Signs Vital Sign Reading Time Taken Comments Blood Pressure 122/65 02/11/2024 9:33 AM CDT Pulse 91 02/11/2024 9:33 AM CDT Temperature 36.4 C (97.6 F) 02/11/2024 9:33 AM CDT Respiratory Rate 18 02/11/2024 9:33 AM CDT Oxygen Saturation 96% 02/11/2024 9:33 AM CDT Inhaled Oxygen Concentration - - Weight 112 kg (247 lb) 02/11/2024 9:33 AM CDT Height - - Body Mass Index - - Plan of Treatment Health Maintenance Due Date Last Done Comments Tetanus booster 02/24/1983 Depression screening for age 12+ 1984 HIV for age 15-65 02/24/1987 BMI (ht and wt on same day) for age 18+ 02/24/1990 Hepatitis C screening for age 18-79 02/24/1990 Hepatitis B series for 19+ ( 1 of 3 - 19+ 3-dose series) 02/24/1991 Pap test for age 21-65 02/24/1993 Colonoscopy through age 75 02/24/2017 Lipids for age 45-75 02/24/2017 Mammogram for age 40-75 02/24/2017 Pneumococcal series for age 50+ (1 of 1 - PCV) 022 Zoster (shingles) series for age 50+ (1 of 2) 02/25/20 22 COVID-19 vaccine series (2 - 2024- season) 2023 Influenza Vaccine (#1) 2024 RSV vaccine for adults or pr egnancy (1 - 1-dose 75+ series) 02/24/2047 Insurance [place] [id number] Care Teams Director Radio Relationship Specialty Start Date End Date Socorro Smalls DO [id number] [place] [id number] PCP - General Family Practice 10/27/22
--- OUTSIDE RECORDS SUMMARY | 2025-04-10 10:30 | XMS_ITS | Clinical Summary ---
Author Organization [facility] Address [address], [place] [address] Care Team Providers Care Supervisor Personnel Clerks Name Role Phone Socorro Smalls DO Primary Care Provider + Source Comments You are receiving this document as you are listed as the primary care provider,follow-up provider, or the patient has been referred to you for consultation.This is in compliance with the Medicare and[facility] EHR Incentive Program,which states Providers who transition their patient to another setting of careor provider of care or refers their patient to another provider of care shouldprovide summary care record for each transition of care or referral. 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 Yellow Dyes 6, 10, And 11 Rash Medium 05/27/2022 Reaction: rash, Reaction: rash, Medications SLYND 4 MG TABS Take 1 Tablet (4 mg) by mouth daily. Active levothyroxine (SYNTHROID) 50 MCG tablet 3 Active Melatonin 10 MG CAPS Take by mouth. Active ondansetron (ZOFRAN) 4 MG tablet Take 1 Tablet (4 mg) by mouth daily as needed. 3 Active NURTEC 75 MG TBDP Take 1 Tablet (75 mg) by mouth every other day. Active TRINTELLIX 20 MG tablet 0.5 Tablets (10 mg). 3 Active ziprasidone (GEODON) 40 MG capsule Take 1 Capsule (40 mg) by mouth. Active zolpidem tartrate (AMBIEN CR) 6.25 MG controlled release tablet Take 1 Tablet (6.25 mg) by mouth at bedtime as needed. Active lamoTRIgine ER 100 MG Take 1 Tablet (100 mg) by mouth. 3 Active hydrOXYzine HCl (ATARAX) 25 MG tablet Take 1-2 Tablets (25-50 mg) by mouth every 8 hours as needed. 5 Active benzonatate (TESSALON) 100 MG capsuleIndicatio ns:Cough, unspecified type Take 1-2 Capsules (100-200 mg) by mouth three times a day as needed for Cough for up to 30 doses. 30 Capsule 5 Active Active Problems Problem Noted Date Diagnosed Date Transient alteration of awareness 01/28/2025 Anxiety 07/02/2022 Overview (01/28/2025): Last Assessment & Plan: Follow-up with Psychiatrist and Therapist as directed Other hyperlipidemia 07/02/2022 Overview (01/28/2025): Last Assessment & Plan: Lab Results Component Value Date CHOL 227 01/31/2023 Lab Results Component Value Date TRIG 126 01/31/2023 Lab Results Component Value Date HDL 55 01/31/2023 Lab Results Component Value Date LDLC 147 01/31/2023 Continue lifestyle change and consider statin medication in the future, based on history of medication intolerances and polypharmacy. 1.3% low risk ASVCD (without diabetes hx) 2.6% low risk ASCVD (wtith diabetes) Psychophysiological insomnia 06/10/2020 JACQUE (obstructive sleep apnea) 04/29/2020 Encounters Date Type Department Care Team Description 02/26/2025 4:40 PM MACHINE LACER Office Visit [place] [facility] [address] [facility] [address] [place] [address] Gabriel Shah MD Cough, unspecified type (Primary Dx); Throat soreness 01/28/2025 4:30 PM CDT Office Visit [place] [facility] [address] [facility] [address] [place] [address] Francisco Pereira PA-C Cough, unspecified type (Primary Dx); Pharyngitis, unspecified etiology; Acute upper respiratory infection from Last 3 Months Immunizations Immunization Administration Dates Next Due Flu Vac Preserv Free (3+yrs) 01/05/2025 Influenza (Flucelvax), Prese rv Free QIV 01/09/2023,02/16/2020,02/14/2020,2018,05/04/2017 Influenza ccIIV3 6 months+ (Flucelvax) 12/31/2023 Moderna COVID-19 12+ (Spikevax) 01/05/2025,12/30 Tdap 04/23/2022 Zoster RZV (Shingrix) 05/09/2022 Family History Relation Name Status Comments Father Mother Alive Social History Tobacco Use Types Packs/Day Years Used Date Smoking Tobacco: Never Smokeless Tobacco: Never Tobacco Cessation:Counseling Given: Not Answered Alcohol Use Standard Drinks/Week Comments Yes 0 (1 standard drink = 0.6 oz pur e alcohol) PHQ-2 Answer Date Recorded PHQ-2 Score 4 01/28/2025 Comments Unknown Sex and Gender Information Value Date Recorded Sex Assigned at Not on file Legal Sex Female 10:32 AM CDT Gender Identity Not on file Sexual Orientation Not on file Last Filed Vital Signs Vital Sign Reading Time Taken Comments Blood Pressure 129/82 02/26/2025 4:33 PM MACHINE LACER Pulse 99 02/26/2025 4:33 PM MACHINE LACER Temperature 37.7 C (99.8 F) 02/26/2025 4:33 PM MACHINE LACER Respiratory Rate 18 02/26/2025 4:33 PM MACHINE LACER Oxygen Saturation 95% 02/26/2025 4:33 PM MACHINE LACER Inhaled Oxygen Concentration - - Weight 128.4 kg (283 lb) 02/26/2025 4:33 PM MACHINE LACER Height 168.9 cm (5' 6.5) 02/26/2025 4:33 PM MACHINE LACER Body Mass Index 44.99 02/26/2025 4:33 PM MACHINE LACER Plan of Treatment Health Maintenance Due Date Last Done Comments Cervical Cancer Screening Due 1972 Colon Cancer Screening Plan Due 1972 Hep C Screening (Preventive Services) 1972 Mammogram 1972 HIV Screening (Preventive Services) 1988 Adult Preventive Visit 02/24/1990 HepB Vaccine (1) 02/24/1991 Cholesterol 02/24/2017 Pneumococcal Vaccine 50+ Yrs (1 of 1 - PCV) 02/24/2022 RSV Vaccine (1 - Risk 50-74 years 1-dose series) 02/24/2022 Zoster/Shingles Vaccine (2 of 2) 07/04/2022 05/09/2022 Diabetes Screening- (based on age and BMI) 01/31/2026 01/31/2023, 06/16/2022 DTaP/Tdap/Td Vaccine (2 - Tdap) 04/23/2032 04/23/2022 COVID-19 Vaccine Completed 01/05/2025, 12/31/2023 Influenza Vaccine Completed 01/05/2025, , 01/09/2023, Additional history exists HepA Vaccine Aged Out No longer eligi ble based on patient's age to complete this topic Hib Vaccine Aged Out No longer eligi ble based on patient's age to complete this topic IPV (Polio) Vaccine Aged Out No longe r eligible based on patient's age to complete this topic MCV4 Vaccine Aged Out No longer eligi ble based on patient's age to complete this topic Meningococcal B Vaccine Aged Out No l onger eligible based on patient's age to complete this topic Insurance [facility] [id number] Care Teams Supervisor Personnel Clerks Relationship Specialty Start Date End Date Socorro Smalls DO [id number] [place] [id number] PCP - General Family Practice 10/21/22
[2025-04-10 11:25] LABS: Alanine Aminotransferase 33 U/L (6-35); Albumin Level 4.4 g/dL (3.5-5.1); Alkaline Phosphatase 92 U/L (38-126); Aspartate Amino Transferase 33 U/L (14-36); Bilirubin,Total 0.5 mg/dL (0.2-1.3); Total Protein 7.6 g/dL (6.3-8.2)
[2025-04-11 06:07] LABS: FSH 59.0 mIU/mL (.)
[2025-04-13 12:07] LABS: Estrogens, Total 85 pg/mL (.)
== END 2025-04-10 10:27 | disposition home or self-care (01) ==
LOC: ANHLAB 10:28
PROVIDERS: PCP Family Medicine; Visit Provider Obstetrics & Gynecology
DX: N95.1 Menopausal and female climacteric states (principal)
CPT/HCPCS: 36415; 80076; 82672; 83001